=== PATIENT | female | born 1980 | race Caucasian/White ===

== ENCOUNTER 2021-06-06 09:21 | Emergency (ER) | payer OTHER, MEDICAID ==
--- NOTE | 2021-06-06 11:20 | XRAY Report ---
PROCEDURE: Knee 3 View RT INDICATIONS: trauma TECHNIQUE: 3 views of the right knee were acquired. COMPARISON: None. FINDINGS: Bones: No fractures or dislocations. There is slight lateral tilt of the patella with mild narrowing in the lateral patellofemoral compartment. No suspicious bony lesions. Soft tissues: No joint effusion. No suspicious soft tissue calcifications. IMPRESSION: 1. No fracture or dislocation. Reviewed by: Ray Santiago MD on 06/06/2021 11:18 AM PDT Approved by: Ray Santiago MD on 06/06/2021 11:18 AM PDT Station ID: [id number]
[2021-06-06] MEDS ORDERED: HYDROcod/ACETAM 5/325 MG TABLET PO STA (12:22)
--- NOTE | 2021-06-06 12:41 | ED Physician Documentation ---
PD HPI LOWER EXT INJURY - Stated complaint Stated Complaint: FALL-R LEG INJURY - Chief complaint Chief Complaint: Trauma Ext - History obtained from History obtained from: Patient - History of Present Illness PD HPI LOW EXT INJURY LOCATION: Right, Knee Type of injury: Fall Where injury occurred: Work Timing - onset: How many hours ago (1) Pain level max: 6 Pain level now: 5 Improved by: Rest Worsened by: Moving Associated symptoms: Swelling. No: Weakness, Numbness, Tingling, Discolored - Additional information Additional information: 40-year-old female presents to the emergency department after a fall at work today injuring her right knee. She states that it bent laterally. Happened about an hour prior to arrival. Better with rest, worse with movement. Does have swelling. No discoloration. Has never had similar symptoms previously. Review of Systems Constitutional: denies: Fever, Chills Respiratory: denies: Cough GI: denies: Nausea, Vomiting, Diarrhea Skin: denies: Rash Musculoskeletal: denies: Neck pain, Back pain PD PAST MEDICAL HISTORY - Past Medical History Past Medical History: No - Past Surgical History Past Surgical History: No - Present Medications Home Medications: Ambulatory Orders Medication Instructions Recorded Confirmed HYDROcod/ACETAM 5/325 [[place] 5/325] 1 - 2 ea PO Q6H PRN #14 tablet 06/06/21 Ibuprofen [Motrin] 800 mg PO Q8H PRN #30 tablet 06/06/21 - Allergies Allergies/Adverse Reactions: Allergies Allergy/AdvReac Type Severity Reaction Status Date / Time No Known Drug Allergies Allergy Verified 06/06/21 10:12 - Living Situation Living Arrangement: reports: At home - Social History Does the pt have substance abuse?: No PD ED PE NORMAL - Vitals Vital signs reviewed: Yes - General General: Alert and oriented X 3, No acute distress - HEENT HEENT: Moist mucous membranes - Neck Neck: Supple, no meningeal sign - Derm Derm: Warm and dry - Extremities Extremities: Other (Tender to palpation on the medial aspect of the right knee. MCL is lax. Neurovascularly intact. ACL, PCL, LCL are intact. ) - Neuro Neuro: Alert and oriented X 3 - Psych Psych: Normal mood, Normal affect Results - Vitals Vitals: Vital Signs - 24 hr 06/06/21 06/06/21 06/06/21 10:10 12:59 13:30 Temperature 36.3 C L Heart Rate 101 H 65 64 Respiratory 16 16 17 Rate Blood Pressure 99/70 108/67 125/64 O2 Saturation 100 100 100 Oxygen O2 Source Room air - Rads (name of study) R knee xray Radiology: Final report received, EMP read contemporaneously, See rad report (1. No fracture or dislocation. ) PD MEDICAL DECISION MAKING - ED course Complexity details: reviewed results, re-evaluated patient, considered differential, d/w patient ED course: 40-year-old female with what appears to be an MCL sprain versus tear. Placed in a articulating knee brace and given crutches. We will have her follow-up closely with orthopedics for further care. I am prescribing a short course of short-acting opioid pain medication for this patient. I have reviewed the patients MOVER and no concerning findings were noted. I have discussed that the opioids are for short term therapy only, and will not be refilled from the ED. patient counseled regarding signs and symptoms for which I believe and urgent re-evaluation would be necessary. Patient with good understanding of and agreement to plan and is comfortable going home at this time This document was made in part using voice recognition software. While efforts are made to proofread this document, sound alike and grammatical errors may occur. Departure - Departure Disposition: 01 Home, Self Care Clinical Impression: MCL sprain of right knee Qualifiers: Encounter type: initial encounter Qualified Code(s): S83.411A - Sprain of medial collateral ligament of right knee, initial encounter Condition: Good Instructions: ED Sprain Knee Collateral Ligaments Follow-Up: [facility] [Provider Group] - Within 1 week Prescriptions: Ibuprofen [Motrin] 800 mg PO Q8H PRN #30 tablet PRN Reason: PAIN &/OR FEVER HYDROcod/ACETAM 5/325 [[place] 5/325] 1 - 2 ea PO Q6H PRN #14 tablet PRN Reason: Pain Comments: [facility] [place] Please follow-up with orthopedics within the next week for repeat evaluation. It is unclear if you have only sprained your Medial collateral ligament or if you have torn it. This will been further evaluated by orthopedics. Stay in the brace until released by orthopedics I am prescribing a short course of narcotic pain medication for you. These are potentially dangerous and addictive medications that should be used carefully. These medications may constipate you. Take an kgdu-sty-ocofezj stool softener (docusate) twice daily with plenty of water while taking these medications. If you go 24 hours without a bowel movement, take kyxy-ihx-kalnqkw miralax, per package instructions. Do not drink or drive while taking these medications. If you received narcotic or sedating medications while in the emergency department, do not drive for 24 hours. Store this medication in a safe, secure place and out of reach of children. It is a violation of federal law to give or sell this medication to another person or to use in a manner other than prescribed. The ED will not refill narcotic prescriptions, including prescriptions lost or stolen. To dispose of unwanted medications: 1. [facility] [address] in [place] has a medication drop box. They accept prescription medications (in pill form) Sunday through Sunday 9:00 a.m. to 5:00 p.m. 2. [facility] accepts prescription medications (in pill form only) for disposal year round. Call for more information. 3. Contact the [facility] for the next [facility] sponsored prescription drug collection event. , [phone], or [phone]; Discharge Date/Time: 06/06/21 13:31
[2021-06-06 13:31] VITALS: BP 125/64
== END 2021-06-06 13:31 | disposition home or self-care (01) ==
LOC: ED 09:21
DX: S83.411A Sprain of medial collateral ligament of right knee, initial encounter (principal); W17.89XA Other fall from one level to another, initial encounter; Y92.89 Other specified places as the place of occurrence of the external cause; Y99.0 Civilian activity done for income or pay
CPT/HCPCS: 1040M; 73562; 99283; 99284; A9270

== ENCOUNTER 2021-07-04 10:51 | Outpatient (CLI) | payer OTHER ==
--- NOTE | 2021-07-04 14:41 | MRI Report ---
PROCEDURE: Knee RT W/O INDICATIONS: INTERNAL DERANGEMENT RT KNEE TECHNIQUE: Noncontrast sagittal PD fast spin echo and T2 fast spin echo with fat saturation, sagittal 3-D gradie nt sequence with fat saturation; coronal T1 spin echo and PD fast spin echo with fat saturation, and axial PD fast spin echo with fat saturation through the knee. COMPARISON: Right knee radiograph dated 06/06/2021. FINDINGS: Image quality: Excellent. Menisci: Subtle oblique tear involving posterior horn of medial meniscus extending to inferior articu lating surface is seen. There is peripheral displacement of lateral meniscus bowing lateral collatera l ligament with suggestion of a complex tear involving posterior horn lateral meniscus extending to b oth superior and inferior articulating surfaces. The meniscal root ligaments appear intact. Cruciate ligaments: Attenuated appearance of anterior cruciate ligament near its proximal insertion i s seen concerning for high-grade partial thickness tear of ACL. There is suggestion of a few intact f ibers along the expected course of ACL. PCL is intact. Medial structures: Moderate to high-grade partial-thickness tear involving medial collateral ligament is seen near its femoral insertion. The posterior oblique ligament, semimembranosus tendon insertion s, and oblique popliteal ligament, and meniscocapsular junction appear intact. Visualized portions o f the pes anserinus tendons appear normal. No abnormal bursal fluid. Lateral structures: There is also suggestion of low to moderate grade partial thickness tear involvin g proximal LCL near its proximal insertion. The long and short heads of the biceps femoris tendon sierra ear intact. The popliteus tendon appears normal; the popliteofibular ligament appears intact. The p osterosuperior and anteroinferior popliteomeniscal fascicles appear intact. The arcuate and fabellof ibular ligaments appear intact, around the lateral inferior geniculate artery. Iliotibial band appea rs normal. Anterior structures: The quadriceps appears intact. Tendinosis involving proximal and distal patella r tendon near its patella and tibial insertions are seen. No full-thickness patellar tendon rupture. Patellar alignment is normal. No femoral trochlear dysplasia or ventral trochlear prominence. No ed morteza in the infrapatellar fat pad. Bones and cartilage: Extensive marrow edema involving inferior portion of patella, lateral periphery of lateral femoral condyle weightbearing portion, medial periphery of medial femoral condyle weightbe aring portion, throughout proximal tibia extending to posterior aspect of medial and lateral tibial p lateau and adjacent medial aspect of fibula head is seen. No definite discrete fracture line is ident ified. Articulating cartilages in medial and lateral femoral tibial compartments are intact. Patellar cartilage is intact. Joint space: There is small amount of joint fluid, no gross intra-articular loose body. Extensive so ft tissue edema along anterior, lateral and posterior aspect of right knee is seen. No Carpio's cyst. Normal appearing synovial plicae are incidentally noted. IMPRESSION: 1. Finding is suggestive of high-grade partial-thickness tear involving ACL near its proximal inserti on with suggestion of a few intact ACL fibers versus fibrotic scarring. PCL is intact. 2. Subtle oblique tear involving posterior horn of medial meniscus extending to inferior articulating surface. Suggestion of complex tear involving posterior horn of lateral meniscus extending to both s uperior and inferior articulating surfaces. 3. Moderate to high-grade partial-thickness tear involving medial collateral ligament. Low to moderat e grade proximal LCL partial-thickness tear near its femoral insertion. 4. Tendinosis involving proximal and distal patellar tendon as above. No full-thickness quadriceps or patellar tendon rupture. 5. Extensive bony contusion involving medial and lateral femoral condyles, proximal tibia and mid to inferior portion of patella. No definite fracture is seen. No dislocation. Small joint effusion, no l oose body. Reviewed by: Harish Rey MD on 07/04/2021 2:40 PM PDT Approved by: Harish Rey MD on 07/04/2021 2:40 PM PDT Station ID: [id number]
== END 2021-07-04 10:52 | disposition home or self-care (01) ==
LOC: DI 10:51
PROVIDERS: ATTEND Physician Assistant
DX: S83.511A Sprain of anterior cruciate ligament of right knee, initial encounter (principal); S83.241A Other tear of medial meniscus, current injury, right knee, initial encounter; S83.411A Sprain of medial collateral ligament of right knee, initial encounter; S83.421A Sprain of lateral collateral ligament of right knee, initial encounter; M67.961 Unspecified disorder of synovium and tendon, right lower leg; S80.01XA Contusion of right knee, initial encounter; M25.461 Effusion, right knee